=== PATIENT | male | born 1955 | race Caucasian/White ===

== ENCOUNTER 2016-11-10 07:43 | Day surgery (SDC) | payer OTHER ==
[2016-11-06 15:11] VITALS: BMI 42.7
[2016-11-10] MEDS ORDERED: ROPIVACAINE HCL 0.5% 30ML VIAL ONE (08:43)
[2016-11-10] MEDS ORDERED: MIDAZOLAM HCL 2 MG/2 ML SINGLE DOSE VIAL ONE ×5 (08:43→10:09)
[2016-11-10] MEDS ORDERED: DEXAMETHASONE SOD PHOSPHATE/PF 10 MG/ML SDV ONE (08:43)
[2016-11-10] MEDS ORDERED: METOPROLOL TARTRATE 5 MG/5 ML VIAL ONE (10:12)
[2016-11-10 12:52] VITALS: TEMP 98.3
[2016-11-10 12:54] VITALS: BP 121/74; PULSE 81
--- NOTE | 2016-11-13 03:00 | OP ---
DATE OF OPERATION: 11/10/2016 SURGEON: Ministerio Galarza MD EMERGENCY COMMUNICATIONS OPERATOR: REINIER England PREOPERATIVE DIAGNOSIS: 1. Right shoulder rotator cuff tear. 2. Right shoulder of acromioclavicular joint disease. 3. Right shoulder labral tear and anterior and posterior synovitis. 4. Right shoulder biceps tendon long head tear. POSTOPERATIVE DIAGNOSIS: 1. Right shoulder rotator cuff tear. 2. Right shoulder of acromioclavicular joint disease. 3. Right shoulder labral tear and anterior and posterior synovitis. 4. Right shoulder biceps tendon long head tear. PROCEDURE: 1. Right shoulder arthroscopy with rotator cuff repair. 2. Right shoulder arthroscopy with subacromial decompression. 3. Right shoulder arthroscopy with resection of distal clavicle acromioclavicular joint. 4. Right shoulder arthroscopy with debridement of synovectomy major. 5. Right shoulder arthroscopy with biceps tendon release. CPT code 56914, 61193, 15705, 12213, 69315. FINDINGS: 1. 90% tearing of the long head biceps tendon with dislocation. 2. Extensive full-thickness tear of the supraspinatus and infraspinatus tendons with retraction to midpoint glenohumeral joint. 3. Thickness of scar, subacromial space. 4. Anterolateral spurring of acromion. 5. Inferior superior clavicle degenerative joint disease. REPAIR TYPE: Four mattress sutures were placed into the supraspinatus and secured to a bleeding bone bed. They were done in adapted proximal and distal row technique and secured to bleeding bone bed with direct contact. Biceps tendon was released due to extensive tearing debrided. Please note that the distal clavicle resection including undersurface of greater than 1 cm including articular portion. PROCEDURE: Informed consent was obtained. The patient was taken to the operating room where the upper extremity was prepped and draped in a sterile fashion. The shoulder was manipulated for a full range of motion. Posterior incision portal was made and directed to glenohumeral joint. Under direct visualization, an anterior incision and portal was made. Extensive synovitis, as well as chondral injuries throughout the glenohumeral joint were dbrided and removed. Any identified labral injuries, including superior labral tear, anterior and posterior, and anterior labrum torn portions were removed as well. Rotator cuff was visualized and noted to have full-thickness tear. The edges were debrided. Posterior incision portal was redirected to subacromial space where a lateral incision portal was made. Excessive and thickened scar tissue noted throughout the subacromial space, including bursal and scar tissue, were removed. The type 2 acromion was converted into a flattened type 1 using a efren for subacromial decompression. Distal inferior spur at the distal clavicle was also dbrided with the use of accessory portal in the AC joint. The edges of the rotator cuff were identified. Sutures were placed into the rotator cuff and secured using anchors throughout the greater tuberosity. Prior to securing, a bleeding bed was made using a small efren, creating a bleeding surface of the rotator cuff insertion. The shoulder was then drained. A single suture as placed on all portals and a sterile dressing was placed. The patient was transferred to the recovery room without complication. MINISTERIO GALARZA M.D. [id number]
--- NOTE | 2016-11-15 08:54 | PATH ---
Surgical Pathology Report Patient Name: ALESIA BRODERICK [facility]. Rec. #: [id number] /Age/Gender: 1955 (Age: 61) / M Account: [id number] Location: [facility] AMBUL[facility] Taken: 11/10/2016 Received: 11/10/2016 Reported: 11/15/2016 Physicians: Ministerio Ortega M.D. Specimen(s) Received RIGHT SHOULDER SHAVINGS Clinical History Right shoulder rotator cuff tear Final Diagnosis RIGHT SHOULDER, ARTHROSCOPIC SHAVING: PORTIONS OF SYNOVIUM, CARTILAGE, SKELETAL MUSCLE AND BONE CONSISTENT WITH ARTHROSCOPIC SHAVINGS. Electronically Signed Az Morales M.D. Gross Description Received in formalin, labeled "right shoulder shavings," is a 3.0 x 3.0 x 0.3 cm. aggregate of rodriguez-yellow soft tissue fragments. A community relations representative portion is submitted in one cassette. 11/13/201611/13/2016
== END 2016-11-10 12:45 | disposition home or self-care (01) ==
LOC: FASU 07:43
PROVIDERS: ATTEND Orthopaedic Surgery
PROC: 0RNJ4ZZ Release Right Shoulder Joint, Percutaneous Endoscopic Approach (ICD-10-PCS; 2016-11-10)
PROC: 0PB94ZZ Excision of Right Clavicle, Percutaneous Endoscopic Approach (ICD-10-PCS; 2016-11-10)
PROC: 0RBJ4ZZ Excision of Right Shoulder Joint, Percutaneous Endoscopic Approach (ICD-10-PCS; 2016-11-10)
PROC: 0RQJ4ZZ Repair Right Shoulder Joint, Percutaneous Endoscopic Approach (ICD-10-PCS; 2016-11-10)
PROC: 0LB14ZZ Excision of Right Shoulder Tendon, Percutaneous Endoscopic Approach (ICD-10-PCS; principal; 2016-11-10 09:00)
DX: M75.101 Unspecified rotator cuff tear or rupture of right shoulder, not specified as traumatic (principal); M25.811 Other specified joint disorders, right shoulder; S43.431A Superior glenoid labrum lesion of right shoulder, initial encounter; M65.811 Other synovitis and tenosynovitis, right shoulder; S43.491A Other sprain of right shoulder joint, initial encounter; M66.821 Spontaneous rupture of other tendons, right upper arm; X58.XXXA Exposure to other specified factors, initial encounter; Y93.9 Activity, unspecified; Y92.9 Unspecified place or not applicable
CPT/HCPCS: 88304-TC; 94760

== ENCOUNTER 2017-04-13 07:00 | Day surgery (SDC) | payer OTHER ==
[2017-04-09 18:02] VITALS: BMI 43.4
[2017-04-13] MEDS ORDERED: DEXAMETHASONE SOD PHOSPHATE/PF 10 MG/ML SDV ONE (08:26)
[2017-04-13] MEDS ORDERED: MIDAZOLAM HCL 2 MG/2 ML SINGLE DOSE VIAL ONE (08:26)
[2017-04-13] MEDS ORDERED: ROPIVACAINE HCL 0.5% 30ML VIAL ONE (08:27)
[2017-04-13] MEDS ORDERED: ONDANSETRON 4 MG/2 ML VIAL IVPUSH PRN (10:29)
[2017-04-13] MEDS ORDERED: oxyCODONE HCL 5 MG TABLET PO PRN ×2 (10:29)
[2017-04-13] MEDS ORDERED: LACTATED RINGERS SOLUTION 1,000 ML IV SCH (10:30)
[2017-04-13] MEDS ORDERED: DESFLURANE GAS 240 ML BOTTLE IH ONE (10:35)
[2017-04-13] MEDS ORDERED: NEOSTIGMINE METHYLSULFATE 0.5 MG/ML - 10 ML MDV ONE (10:42)
[2017-04-13 11:28] VITALS: TEMP 98.2
[2017-04-13 12:15] VITALS: BP 129/77; PULSE 77
--- NOTE | 2017-04-16 14:54 | PATH ---
Surgical Pathology Report Patient Name: ALESIA BRODERICK Med. Rec. #: [id number] /Age/Gender: 1955 (Age: 61) / M Account: [id number] Location: [facility] AMBULATORY Taken: 04/13/2017 Received: 04/13/2017 Reported: 04/16/2017 Physicians: Ministerio Ortega M.D. Specimen(s) Received RIGHT SHOULDER IMPLANT AND SHAVINGS Clinical History Right shoulder rotator cuff tear Final Diagnosis RIGHT SHOULDER IMPLANT AND SHAVINGS: FRAGMENTS OF SYNOVIUM AND FIBROCARTILAGE WITH MYXOHYALINE DEGENERATION. SMALL FRAGMENTS OF UNREMARKABLE BONE AND SKELETAL MUSCLE. ORTHOPEDIC HARDWARE (GROSS EXAM). Electronically Signed Hussain Bae M.D. Gross Description Received in formalin, labeled "right shoulder implant and shavings," is a 2.5 cm in greatest dimension aggregate of rodriguez-yellow soft tissue fragments. A territory representative portion is submitted in one cassette. Also present are 2 portions of metallic hardware each of which measure 0.8 x 0.3 x 0.3 cm, and have attached possible suture material. This is for gross identification only. [facility]/04/13/2017 [facility]/04/13/2017
--- NOTE | 2017-04-21 14:56 | OP ---
DATE OF OPERATION: 04/13/2017 SURGEON: Ministerio Galarza MD CENTERPUNCHER: REINIER [place] PREOPERATIVE DIAGNOSES: 1. Right shoulder rotator cuff tear. 2. Right shoulder impingement syndrome. 3. Right shoulder synovitis. POSTOPERATIVE DIAGNOSES: 1. Right shoulder rotator cuff tear. 2. Right shoulder impingement syndrome. 3. Right shoulder synovitis. PROCEDURE: 1. Right shoulder arthroscopy with revision repair of supraspinatus rotator cuff tear. 2. Right shoulder arthroscopy with subacromial decompression. 3. Right shoulder arthroscopy with debridement. FINDINGS: 1. Previous rotator cuff repair with retear and extension into infraspinatus. 2. No evidence of long head of biceps. 3. Extensive scar tissue anteriorly and laterally subacromial space. 4. Previous subacromial decompression with minor posterior spurring recurrence. 5. Posterior labral fraying with diffuse grade 2-4 cartilage injury glenoid and humerus. REPAIR TYPE: Loose anchors were removed throughout the area site of previous repair. Sutures were also removed. The remnants of the supraspinatus and infraspinatus tendons were freed from scarring to allow for distraction into the superior portion of the humeral head. Bleeding bone bed was made along the cartilage portion of the superior portion of the humerus to allow for shortening of the rotator cuff and to decrease tension on the repair. Anchors were placed across the greater tuberosity lateral to the bleeding bone bed. Mattress sutures were placed into the supraspinatus and infraspinatus and secured to the bleeding bone bed with tension across the anchors. These were then probed and found to have good stability. PROCEDURE: Informed consent was obtained. The patient was taken to the operating room where the upper extremity was prepped and draped in a sterile fashion. The shoulder was manipulated for a full range of motion. Posterior incision portal was made and directed to glenohumeral joint. Under direct visualization, an anterior incision and portal was made. Extensive synovitis, as well as chondral injuries throughout the glenohumeral joint were dbrided and removed. Any identified labral injuries, including superior labral tear, anterior and posterior, and anterior labrum torn portions were removed as well. Rotator cuff was visualized and noted to have full-thickness tear. The edges were debrided. Posterior incision portal was redirected to subacromial space where a lateral incision portal was made. Excessive and thickened scar tissue noted throughout the subacromial space, including bursal and scar tissue, were removed. The type 2 acromion was converted into a flattened type 1 using a efren for subacromial decompression. Distal inferior spur at the distal clavicle was also dbrided with the use of accessory portal in the AC joint. The edges of the rotator cuff were identified. Sutures were placed into the rotator cuff and secured using anchors throughout the greater tuberosity. Prior to securing, a bleeding bed was made using a small efren, creating a bleeding surface of the rotator cuff insertion. The shoulder was then drained. A single suture as placed on all portals and a sterile dressing was placed. The patient was transferred to the recovery room without complication. MINISTERIO GALARZA M.D. [id number]
== END 2017-04-13 12:30 | disposition home or self-care (01) ==
LOC: FASU 07:00
PROVIDERS: ATTEND Orthopaedic Surgery
PROC: 0RNJ4ZZ Release Right Shoulder Joint, Percutaneous Endoscopic Approach (ICD-10-PCS; 2017-04-13)
PROC: 0RBJ4ZZ Excision of Right Shoulder Joint, Percutaneous Endoscopic Approach (ICD-10-PCS; 2017-04-13)
PROC: 0LB14ZZ Excision of Right Shoulder Tendon, Percutaneous Endoscopic Approach (ICD-10-PCS; principal; 2017-04-13 09:00)
DX: M75.101 Unspecified rotator cuff tear or rupture of right shoulder, not specified as traumatic (principal); M75.41 Impingement syndrome of right shoulder; M65.811 Other synovitis and tenosynovitis, right shoulder
CPT/HCPCS: 88304-TC; 94760

== ENCOUNTER 2019-03-08 17:00 | Inpatient (IN) | payer OTHER ==
--- NOTE | 2019-03-08 17:24 | PDOC ---
History of Present Illness - General Chief Complaint: Pain Stated Complaint: ABDOMINAL PAIN Time Seen by Provider: 03/08/19 17:11 History Source: Patient Exam Limitations: No Limitations - History of Present Illness Initial Comments: 63M pmh HTN presenting with 1 day of constant crampy nonradiating LLQ pain w/ a few days of TRACIE but able to tolerate PO. Denies f/c/n/v/d, dysuria, testicular pain/swelling. Was seen in urgent care on 03/07/19 for LLQ abdominal pain and instructed to proceed to ED for further w/u; r/o diverticulitis. Was discharged with flagyl and levaquin. Last BM today. Took tramadol for pain today. PMH HTN MEDs see chart NKDA Denies tobacco, drugs Endorses social etoh Past History - Past Medical History Allergies/Adverse Reactions: Allergies Allergy/AdvReac Type Severity Reaction Status Date / Time No Known Drug Allergies Allergy Verified 03/08/19 17:16 Home Medications: Ambulatory Orders Cholecalciferol (Vitamin D3) [Vitamin D3] 2,000 unit PO DAILY 11/06/16 Lansoprazole [Prevacid] 30 mg PO DAILY 11/06/16 Multivitamins [Multivit ([facility] Formulary)] 1 tab PO DAILY 11/06/16 Nebivolol HCl [Bystolic] 10 mg PO DAILY 11/06/16 traMADol HCL [Ultram -] 50 mg PO Q4H PRN 11/06/16 Levofloxacin [Levaquin] 750 mg PO DAILY 03/08/19 Valsartan 320 mg PO DAILY 03/08/19 metroNIDAZOLE [Flagyl -] 500 mg PO QID 03/08/19 Anemia: No Asthma: No Cancer: No Cardiac Disorders: No CVA: No COPD: No CHF: No Dementia: No Diabetes: No GI Disorders: Yes (GERD) Disorders: No HTN: Yes Hypercholesterolemia: No Liver Disease: No Seizures: No Thyroid Disease: No - Surgical History Abdominal Surgery: Yes (??Hernia Repair) Appendectomy: No Cardiac Surgery: No Cholecystectomy: No Lung Surgery: No Neurologic Surgery: No Orthopedic Surgery: Yes (Right Knee Arthroscopy,R shoulder arthroscopy) - Suicide/Smoking/Psychosocial Hx Smoking History: Never smoked Hx Alcohol Use: Yes (social) Drug/Substance Use Hx: No Substance Use Type: Alcohol, Prescribed Hx Substance Use Treatment: No Review of Systems - Review of Systems Able to Perform ROS?: Yes Comments:: CONSTITUTIONAL: Denies F / C HEENT: Denies headache, lightheadedness, dizziness, changes in vision / hearing , diplopia, blurry vision. RESP: Denies SOB CARD: Denies chest pain GI: see hpi. Denies N / V / D, bloody stool, inability to tolerate PO : Denies dysuria, hematuria MSK: Denies joint pain Is the patient limited Persian proficient: No *Physical Exam - Physical Exam Comments: GEN: Nontoxic. AAOx3 HEENT: NC/AT, EOMI, PERRLA. No facial asymmetry. Normal voice. Supple neck w/ FROM. CV: S1/S2, RRR, no m/r/g LUNG: CTAB, no wheezes, crackles, rales, rhonchi. GI: (+)TTP of RLQ, SUPRAPUBIC, AND LLQ w/ guarding. Upper quadrants soft. nondistended, +BS, no rebound. No hernias or pulsatile masses palpated. : No scrotal or penile swelling. No testicular TTP, erythema, or swelling. No hernias or testicular masses palpated. EXTREMITIES: No obvious deformities of all extremities. SKIN: warm, dry, normal turgor PSYCH: normal mood and affect NEURO: Moving all extremities well; ambulating well. ED Treatment Course - LABORATORY CBC & Chemistry Diagram: 03/11/19 07:16 03/11/19 07:16 Medical Decision Making - Medical Decision Making 03/08/19 17:37 63M presenting with LLQ pain in setting of TRACIE, was seen in urgent care and instructed to go to ED. Sent home w/ flagyl and levaquin. Exam significant for RLQ, suprapubic, and LLQ TTP. VS wnl. DDX most likely diverticulitis given hx; considering appendicitis, cystitis/UTI. Unlikely ischemic colitis - hx inconsistent; pain not out of proportion. Unlikely AAA or AoD given history and exam but considering given age and HTN. - labs - IV fluids - pain control - CT A/P 03/08/19 20:52 CT A/P demonstrating extensive sigmoid diverticulitis with tiny extraluminal air within the adjacent interstitum (pneumoperitoneum). No abscess. Surgery contacted. Zosyn started. Patient is resistant to the idea of admission; november AMA 03/08/19 21:16 Discussed patient with Surgeon economics instructor Dr. Antunez who stated no surgical intervention needed at this time, needs transfer to [facility], IVF, IV Abx, NPO. 03/08/19 21:33 There are no beds at [facility] at this moment, notified Dr. Antunez regarding this. If patient amenable, will admit to [facility] and transfer when [facility] bed available. 03/08/19 22:10 Discussed Patient with RAKESH Caba; he will speak to Dr. Hilton regarding transfer. Will reach back. Signed out to attending. *DC/Admit/Observation/Transfer Diagnosis at time of Disposition: Diverticulitis - Discharge Dispostion Condition at time of disposition: Guarded Decision to Admit order: Yes - Referrals - Patient Instructions - Post Discharge Activity
[2019-03-08] MEDS ORDERED: SODIUM CHLORIDE 0.9% 500 ML INFUS.BAG IV ONE (17:36)
[2019-03-08] MEDS ORDERED: ACETAMINOPHEN 1000 MG/100 ML VIAL (NON FORMULARY) IVPB ONE (17:36)
--- NOTE | 2019-03-08 17:47 | PDOC ---
Attending Attestation - Resident Resident Name: Gilmar Dixon - ED Attending Attestation I have performed the following: I have examined & evaluated the patient, The case was reviewed & discussed with the resident, I agree w/resident's findings & plan, Exceptions are as noted - HPI HPI: 03/08/19 17:42 63 M with h/o HTN, GERD, presenting to ED with 2 days of abdominal pain. Pt states it started yesterday morning. Pain is localized to LLQ and suprapubic region. Does not radiate. Denies N/V but endorses loss of appetite. No diarrhea/ constipation. Denies F/C. Pt went to urgent care yesterday and was prescribed flagyl and levaquin, which he has been taking. However, the pain has been persistent, so pt presents to ED for further evaluation. Pt denies CP/SOB. Denies dysuria. Denies flank pain. Denies scrotal pain. - Physicial Exam PE: 03/08/19 17:47 "GENERAL: Awake, alert, and fully oriented, in no acute distress. HEAD: No signs of trauma EYES: PERRLA, EOMI, sclera anicteric, conjunctiva clear ENT: Auricles normal inspection, hearing grossly normal, nares patent, oropharynx clear without exudates. Moist mucosa NECK: Nontender, no stepoffs, Normal ROM, supple, no lymphadenopathy, JVD, or masses LUNGS: Breath sounds equal, clear to auscultation bilaterally. No wheezes, and no crackles HEART: Regular rate and rhythm, normal S1 and S2, no murmurs, rubs or gallops ABDOMEN: + LLQ TTP, normoactive bowel sounds. No guarding, no rebound. No masses EXTREMITIES: Normal range of motion, no edema. No clubbing or cyanosis. No cords, erythema, or tenderness NEUROLOGICAL: Cranial nerves II through XII intact. 5/5 strength and sensation in all extremities, Normal speech, normal gait, normal cerebellar function SKIN: Warm, Dry, normal turgor, no rashes or lesions noted. - Medical Decision Making 03/08/19 17:49 63 M with LLQ abdominal pain. Likely colitis vs diverticulitis. - Labs - CTAP - IV tylenol Pt signed out to Dr. Coombs at 7PM, pending labs and CT
[2019-03-08] MEDS ORDERED: ACETAMINOPHEN INJECTION 100 ML IVPB ONE (17:52)
[2019-03-08 18:14] LABS: BASO % 0.5 % (0-2.0); EOS % 1.2 % (0-4.5); HEMATOCRIT 49.8 % (35.4-49); HEMOGLOBIN 16.4 GM/dl (11.7-16.9); LYMPH % 13.3 % (8-40); MCH 30.4 pg (25.7-33.7); MEAN CELL VOLUME 92.1 fl (80-96); MEAN PLT VOLUME 9.1 fl (7.5-11.1); MONO % 6.7 % (3.8-10.2); NEUT % 78.3 % (42.8-82.8); PLATELET COUNT 225 K/MM3 (134-434); RBC 5.41 M/mm3 (4.00-5.60); RDW 13.7 % (11.9-15.9); WHITE BLOOD COUNT 12.2 K/mm3 (4.0-10.8)
[2019-03-08 18:35] LABS: ALBUMIN 3.6 g/dl (3.4-5.0); BILIRUBIN,TOTAL 1.2 mg/dl (0.2-1); CALCIUM 8.4 mg/dl (8.5-10); CREATININE 1.1 mg/dl (0.55-1.3); POTASSIUM 4.1 mmol/L (3.5-5.1); TOT PROT 6.8 g/dl (6.4-8.2)
--- NOTE | 2019-03-08 19:16 | PDOC ---
*Physical Exam - Vital Signs Last Vital Signs Temp Pulse Resp BP Pulse Ox 98.5 F 88 18 112/77 97 03/08/19 17:11 03/08/19 17:11 03/08/19 17:11 03/08/19 17:11 03/08/19 17:11 ED Treatment Course - LABORATORY CBC & Chemistry Diagram: 03/08/19 17:50 03/08/19 17:50 - ADDITIONAL ORDERS Additional order review: Laboratory Results 03/08/19 03/08/19 17:50 17:50 Sodium 133 L Potassium 4.1 Chloride 102 Carbon Dioxide 27 Anion Gap 4 L BUN 15.0 Creatinine 1.1 Est GFR (CKD-EPI)AfAm 83.53 Est GFR (CKD-EPI)NonAf 72.07 Random Glucose 100 Calcium 8.4 L Total Bilirubin 1.2 H AST 23 ALT 20 Alkaline Phosphatase 50 Total Protein 6.8 Albumin 3.6 Lipase 57 L 03/08/19 17:50 RBC 5.41 MCV 92.1 MCHC 33.0 RDW 13.7 MPV 9.1 Neutrophils % 78.3 Lymphocytes % 13.3 Monocytes % 6.7 Eosinophils % 1.2 Basophils % 0.5 - Medications Given in the ED: ED Medications Discontinued Medications Generic Name Dose Route Start Last Admin Trade Name Freq PRN Reason Stop Dose Admin Acetaminophen 1,000 mg 03/08/19 17:36 03/08/19 17:55 Ofirmev Injection - IVPB 03/08/19 17:37 1,000 mg ONCE ONE Administration Sodium Chloride 1,000 ml 03/08/19 17:36 03/08/19 17:50 Normal Saline - IV 03/08/19 17:37 1,000 ml ONCE ONE Administration Progress Note - Progress Note Progress Note: Care of this patient was transferred to ct from Dr. zapata at 1900 hrs. Patient is a 63-year-old male who was started on antibiotics for presumptive diverticulitis. Patient's been on the antibiotics 2 days and now comes into the emergency room for a CAT scan. Patient was told at the time he was started on the antibiotics he should go to the emergency room for a CAT scan but did not go for a couple of days. Patient comes otherwise are improving. Patient has a CAT scan pending if there is no evidence of perforation or abscess patient will be discharged home to continue his antibiotics. *DC/Admit/Observation/Transfer Diagnosis at time of Disposition: Diverticulitis - Discharge Dispostion Condition at time of disposition: Guarded Decision to Admit order: Yes - Referrals Referrals: Mikhail Bear MD [Primary Care Provider] - - Patient Instructions - Post Discharge Activity
[2019-03-08] MEDS ORDERED: PIPERACILLIN/TAZOB 4.5 GM 4.5 GM in DEXTROSE 5%-WATER 100 ML IVPB ONE (20:40)
[2019-03-08] MEDS ORDERED: PIPERACILLIN/TAZOBACTAM 4.5 GM VIAL IVPB ONE (20:41)
[2019-03-08 20:43] LABS: EPITHELIAL CELLS FEW /hpf; URINE MUCUS 2+
[2019-03-08 23:32] VITALS: BMI 44.0
[2019-03-09] MEDS ORDERED: ACETAMINOPHEN 325 MG TABLET (FP) PO PRN (00:16)
[2019-03-09] MEDS ORDERED: traMADol HCL 50 MG TABLET PO PRN (00:21)
[2019-03-09] MEDS ORDERED: SODIUM CHLORIDE 0.45% 1,000 ML IV SCH ×3 (00:30→08:45)
[2019-03-09] MEDS ORDERED: ZOLPIDEM TARTRATE 5 MG TABLET PO PRN (01:22)
[2019-03-09] MEDS ORDERED: DEXTROSE 5%-WATER - 50 ML IVPB ONE ×3 (01:28→18:07)
[2019-03-09] MEDS ORDERED: PIPERACILLIN/TAZOBACTAM 3.375 GM VIAL IVPB ONE ×3 (01:28→18:07)
[2019-03-09] MEDS: PIPERACILLIN/TAZOB 3.375 GM 3.375 GM in DEXTROSE 5%-WATER - 50 ML IVPB SCH ×3 (01:33→18:42)
--- NOTE | 2019-03-09 08:16 | HP ---
Admitting History and Physical - Primary Care Physician PCP: Luci Bear - Admission Chief Complaint: abdominal pain since History of Present Illness: 63 M with h/o HTN, GERD, presenting to ED with abdominal pain since . Pain is localized to LLQ and suprapubic region. Does not radiate. Denies N/V but endorses loss of appetite. + loose BM, non-bloody. Pt went to urgent care on Sunday and was prescribed flagyl and levaquin, which he has been taking. However, the pain has been persistent, so pt presents to ED for further evaluation. Pt denies CP/SOB. Denies dysuria. Denies flank pain. Denies scrotal pain. History Source: Patient Limitations to Obtaining History: No Limitations - Past Medical History Cardiovascular: Yes: HTN Gastrointestinal: Yes: GERD - Past Surgical History Past Surgical History: Yes: Hernia Repair - Smoking History Smoking history: Never smoked - Alcohol/Substance Use Hx Alcohol Use: Yes (social) Home Medications - Allergies Allergies/Adverse Reactions: Allergies Allergy/AdvReac Type Severity Reaction Status Date / Time No Known Drug Allergies Allergy Verified 03/08/19 17:16 - Home Medications Home Medications: Ambulatory Orders Cholecalciferol (Vitamin D3) [Vitamin D3] 2,000 unit PO DAILY 11/06/16 Lansoprazole [Prevacid] 30 mg PO DAILY 11/06/16 Multivitamins [Multivit ([facility] Formulary)] 1 tab PO DAILY 11/06/16 Nebivolol HCl [Bystolic] 10 mg PO DAILY 11/06/16 traMADol HCL [Ultram -] 50 mg PO Q4H PRN 11/06/16 Levofloxacin [Levaquin] 750 mg PO DAILY 03/08/19 Valsartan 320 mg PO DAILY 03/08/19 metroNIDAZOLE [Flagyl -] 500 mg PO QID 03/08/19 Family Disease History - Family Disease History Family History: Denies Review of Systems - Review of Systems Constitutional: reports: No Symptoms Eyes: reports: No Symptoms HENT: reports: No Symptoms Neck: reports: No Symptoms Cardiovascular: reports: No Symptoms Respiratory: reports: No Symptoms Gastrointestinal: reports: Abdominal Pain, Other (loss of appetite) Genitourinary: reports: No Symptoms Breasts: reports: No Symptoms Reported Musculoskeletal: reports: No Symptoms Integumentary: reports: No Symptoms Neurological: reports: No Symptoms Endocrine: reports: No Symptoms Hematology/Lymphatic: reports: No Symptoms Psychiatric: reports: No Symptoms Physical Examination Vital Signs: Vital Signs Temperature 98.5 F 03/09/19 04:16 Pulse Rate 72 03/09/19 04:16 Respiratory Rate 19 03/09/19 04:16 Blood Pressure 110/68 03/09/19 04:16 O2 Sat by Pulse Oximetry (%) 97 03/08/19 23:16 Constitutional: Yes: No Distress, Obese Eyes: Yes: WNL, Conjunctiva Clear, EOM Intact HENT: Yes: WNL, Atraumatic, Normocephalic Neck: Yes: WNL, Supple, Trachea Midline Cardiovascular: Yes: WNL, Regular Rate and Rhythm Respiratory: Yes: WNL, Regular, CTA Bilaterally Gastrointestinal: Yes: Normal Bowel Sounds, Abdomen, Obese, Tenderness (RLQ, SUPRAPUBIC, AND LLQ w/ guarding. No hernias or pulsatile masses palpated.) ...Rectal Exam: Yes: Deferred Renal/: Yes: WNL Breast(s): Yes: WNL Musculoskeletal: Yes: WNL Extremities: Yes: WNL Edema: No Peripheral Pulses WNL: Yes Integumentary: Yes: Tattoos (multiple to upper extremeties and chest) Neurological: Yes: WNL, Alert, Oriented ...Motor Strength: WNL Psychiatric: Yes: WNL, Alert, Oriented Labs: CBC, BMP 03/08/19 17:50 03/08/19 17:50 Imaging - Results Cat Scan: Image Reviewed (CT A/P demonstrating extensive sigmoid diverticulitis with tiny extraluminal air within the adjacent interstitum (pneumoperitoneum). No abscess.) Problem List - Problems (1) Perforated diverticulum Code(s): K57.80 - DVTRCLI OF INTEST, PART UNSP, W PERF AND ABSCESS W/O BLEED (2) HTN (hypertension) Assessment/Plan: normotensive NPO-holding oral anti hypertensives will dose with IV if needed Code(s): I10 - ESSENTIAL (PRIMARY) HYPERTENSION (3) GERD (gastroesophageal reflux disease) Assessment/Plan: IV protonix, will switch to oral when taking PO Code(s): K21.9 - GASTRO-ESOPHAGEAL REFLUX DISEASE WITHOUT ESOPHAGITIS (4) Obesity, morbid, BMI 40.0-49.9 Assessment/Plan: counseled on weight loss Code(s): E66.01 - MORBID (SEVERE) OBESITY DUE TO EXCESS CALORIES (5) Prophylactic measure Assessment/Plan: FEN IVF @ 150cc/hr while NPO monitor electrolytes low fat, low cholesterol diet when taking PO DVT heparin sq ambulatory Dispo admit to [facility] surg bed, possible transfer to [facility] pending surgery eval full code discharge planning Code(s): Z29.9 - ENCOUNTER FOR PROPHYLACTIC MEASURES, UNSPECIFIED (6) Diverticulitis Assessment/Plan: CT A/P demonstrating extensive sigmoid diverticulitis with tiny extraluminal air within the adjacent interstitum (pneumoperitoneum). No abscess. Surgery consultation pending Zosyn started in ED NPO with IVF IV tylenol prn pain Code(s): K57.92 - DVTRCLI OF INTEST, PART UNSP, W/O PERF OR ABSCESS W/O BLEED Visit type - Emergency Visit Emergency Visit: Yes ED Registration Date: 03/08/19 Care time: The patient presented to the Emergency Department on the above date and was hospitalized for further evaluation of their emergent condition. - New Patient This patient is new to me today: Yes Date on this admission: 03/09/19 - Critical Care Critical Care patient: No
[2019-03-09] MEDS: SODIUM CHLORIDE 1,000 ML IV SCH (09:15)
[2019-03-09 09:24] LABS: HEMATOCRIT 45.3 % (35.4-49); HEMOGLOBIN 14.6 GM/dl (11.7-16.9); MCH 29.5 pg (25.7-33.7); MCHC 32.3 g/dl (32.0-35.9); MEAN CELL VOLUME 91.3 fl (80-96); MEAN PLT VOLUME 9.8 fl (7.5-11.1); PLATELET COUNT 204 K/MM3 (134-434); RBC 4.96 M/mm3 (4.00-5.60); RDW 13.3 % (11.9-15.9); WHITE BLOOD COUNT 10.4 K/mm3 (4.0-10.8)
[2019-03-09 09:42] LABS: MAGNESIUM 1.8 mg/dL (1.8-2.4); POTASSIUM 3.9 mmol/L (3.5-5.1)
[2019-03-09] MEDS: PANTOPRAZOLE SODIUM 40 MG VIAL IVPUSH SCH (09:45)
[2019-03-09] MEDS ORDERED: CHOLECALCIFEROL (VIT D3) 1,000 UNIT (25 MCG) TABLET PO SCH (10:00)
[2019-03-09] MEDS ORDERED: PANTOPRAZOLE 40 MG TABLET (FP) PO SCH (10:00)
--- NOTE | 2019-03-09 10:45 | CONSULT ---
- Consultation REQUESTING PROVIDER: Zack SCHAFFER CONSULT REQUEST: We have been asked to surgically evaluate this patient for ( specify). PCP:DAYLIN Branch HISTORY OF PRESENT ILLNESS: TREY who is a 63 y/o male who presented to the [facility] after [place] [facility] [place] abdominal pain; w/u reveals diverticulitis w/microperforation; he had # hours of LLQ abdominal pain yesterday before he ws first evaluated at an [facility]; he has had a colonoscopy in the past and did relate to haveing diverticulosis; he has no other GI/ c/o. PMHx: GERD/HTN PSHx: ortho surgery ; hernia repair Home Medications Medication Instructions Recorded Cholecalciferol (Vitamin D3) 2,000 unit PO DAILY 11/06/16 [Vitamin D3] Lansoprazole [Prevacid] 30 mg PO DAILY 11/06/16 Multivitamins [Multivit ([facility] 1 tab PO DAILY 11/06/16 Formulary)] Nebivolol HCl [Bystolic] 10 mg PO DAILY 11/06/16 traMADol HCL [Ultram -] 50 mg PO Q4H PRN 11/06/16 Levofloxacin [Levaquin] 750 mg PO DAILY 03/08/19 Valsartan 320 mg PO DAILY 03/08/19 metroNIDAZOLE [Flagyl -] 500 mg PO QID 03/08/19 Allergies Allergy/AdvReac Type Severity Reaction Status Date / Time No Known Drug Allergies Allergy Verified 03/08/19 17:16 REVIEW OF SYSTEMS: CONSTITUTIONAL: Absent: fever, chills, diaphoresis, generalized weakness, malaise, loss of appetite, weight change CARDIOVASCULAR: Absent: chest pain, syncope, palpitations, irregular heart rate, lightheadedness , peripheral edema RESPIRATORY: Absent: cough, shortness of breath, dyspnea with exertion, wheezing, stridor, hemoptysis GASTROINTESTINAL: Absent: abdominal pain, abdominal distension, nausea, vomiting, diarrhea, constipation, melena, hematochezia GENITOURINARY: Absent: dysuria, frequency, urgency, hesitancy, hematuria, flank pain, genital pain MUSCULOSKELETAL: Present: myalgia, arthralgia, joint swelling, back pain, neck pain SKIN: Absent: rash, itching, pallor HEMATOLOGIC/IMMUNOLOGIC: Absent: easy bleeding, easy bruising, lymphadenopathy NEUROLOGIC: Absent: headache, focal weakness, paresthesias, dizziness, unsteady gait, seizure, mental status changes, bladder or bowel incontinence PSYCHIATRIC: Absent: anxiety, depression, suicidal or homicidal ideation, hallucinations. PHYSICAL EXAM: GENERAL: Awake, alert, and fully oriented, in no acute distress. HEAD: Normal with no signs of trauma. EYES: sclera anicteric, conjunctiva clear. NECK: Normal ROM, supple without lymphadenopathy, JVD, or masses. ABDOMEN: Soft, tender focally LLQ w/guarding; no rebound, not distended, normoactive bowel sounds,no masses. No organomegaly. No hernias. MUSCULOSKELETAL: Normal ROM at all joints. No bony deformities or tenderness. No CVA tenderness. UPPER EXTREMITIES: 2+ pulses, warm, well-perfused. No cyanosis. Cap refill <2 seconds. No peripheral edema. LOWER EXTREMITIES: 2+ pulses, warm, well-perfused. No calf tenderness. No peripheral edema. NEUROLOGICAL: Normal speech, gait not observed. PSYCH: Cooperative. Good eye contact. Appropriate mood and affect. SKIN: Warm, dry, normal turgor, no rashes or lesions noted. Vital Signs Temperature 98.5 F 03/09/19 04:16 Pulse Rate 72 03/09/19 04:16 Respiratory Rate 19 03/09/19 04:16 Blood Pressure 110/68 03/09/19 04:16 O2 Sat by Pulse Oximetry (%) 97 03/08/19 23:16 Lab Results WBC 10.4 K/mm3 (4.0-10.8) 03/09/19 06:00 RBC 4.96 M/mm3 (4.00-5.60) 03/09/19 06:00 Hgb 14.6 GM/dl (11.7-16.9) 03/09/19 06:00 Hct 45.3 % (35.4-49) 03/09/19 06:00 MCV 91.3 fl (80-96) 03/09/19 06:00 MCHC 32.3 g/dl (32.0-35.9) 03/09/19 06:00 RDW 13.3 % (11.9-15.9) 03/09/19 06:00 Plt Count 204 K/MM3 (134-434) 03/09/19 06:00 Sodium 136 mmol/L (136-145) 03/09/19 06:00 Potassium 3.9 mmol/L (3.5-5.1) 03/09/19 06:00 Chloride 100 mmol/L (98-107) 03/09/19 06:00 Carbon Dioxide 27 mmol/L (21-32) 03/09/19 06:00 Anion Gap 9 MMOL/L (8-16) 03/09/19 06:00 BUN 14.0 mg/dl (7-18) 03/09/19 06:00 Creatinine 1.0 mg/dl (0.55-1.3) 03/09/19 06:00 Random Glucose 78 mg/dl (74-106) 03/09/19 06:00 Calcium 8.0 mg/dl (8.5-10) L 03/09/19 06:00 CT a/p reviewed IMP: diverticulitis w/microperforation PLAN: NPO/IVF/IVABS/trend VS and WBC; will f/u. Mike Antunez MD FACS
[2019-03-09] MEDS: HEPARIN NA (PORCINE) 5,000 UNITS/ML 1ML VIAL SQ SCH ×2 (10:56→21:15)
--- NOTE | 2019-03-09 11:48 | EKG ---
Test Reason : Blood Pressure : / mmHG Vent. Rate : 069 BPM Atrial Rate : 069 BPM P-R Int : 138 ms QRS Dur : 092 ms QT Int : 406 ms P-R-T Axes : 046 009 032 degrees QTc Int : 435 ms NORMAL SINUS RHYTHM NORMAL ECG NO PREVIOUS ECGS AVAILABLE Confirmed by LIANNE SCHAFFER, ISIDRO ([id number]) on 03/09/2019 11:47:58 AM Referred By: MD ROJO Confirmed By:ISIDRO ABDALLA MD
--- NOTE | 2019-03-09 11:54 | CON.ID ---
Consult Consult Specialty:: infectious diseases Referred by:: Leda Reason for Consultation:: diverticulitis - History of Present Illness Chief Complaint: abd pain History of Present Illness: 63 M with h/o HTN, GERD, presenting to ED with abdominal pain since . Pain is localized to LLQ . e. Denies N/V but endorses loss of appetite. + loose BM, non-bloody. Pt went to urgent care on Sunday and was prescribed flagyl and levaquin, which he has been taking. However, the pain has been persistent, so pt came to the hospital. on admission patient was worked up and ct scan showed diverticular perf seen by surgical team - History Source History Provided By: Patient Limitations to Obtaining History: No Limitations - Past Medical History Cardio/Vascular: Yes: HTN Gastrointestinal: Yes: GERD - Past Surgical History Past Surgical History: Yes: Hernia Repair - Alcohol/Substance Use Hx Alcohol Use: Yes (social) - Smoking History Smoking history: Never smoked Home Medications - Allergies Allergies/Adverse Reactions: Allergies Allergy/AdvReac Type Severity Reaction Status Date / Time No Known Drug Allergies Allergy Verified 03/08/19 17:16 - Home Medications Home Medications: Ambulatory Orders Cholecalciferol (Vitamin D3) [Vitamin D3] 2,000 unit PO DAILY 11/06/16 Lansoprazole [Prevacid] 30 mg PO DAILY 11/06/16 Multivitamins [Multivit ([facility] Formulary)] 1 tab PO DAILY 11/06/16 Nebivolol HCl [Bystolic] 10 mg PO DAILY 11/06/16 traMADol HCL [Ultram -] 50 mg PO Q4H PRN 11/06/16 Levofloxacin [Levaquin] 750 mg PO DAILY 03/08/19 Valsartan 320 mg PO DAILY 03/08/19 metroNIDAZOLE [Flagyl -] 500 mg PO QID 03/08/19 Review of Systems - Review of Systems Constitutional: reports: No Symptoms Eyes: reports: No Symptoms HENT: reports: No Symptoms Neck: reports: No Symptoms Cardiovascular: reports: No Symptoms Respiratory: reports: No Symptoms Gastrointestinal: reports: Abdominal Pain (left lower quadrant) Musculoskeletal: reports: No Symptoms Integumentary: reports: No Symptoms Neurological: reports: No Symptoms Endocrine: reports: No Symptoms Hematology/Lymphatic: reports: No Symptoms Psychiatric: reports: No Symptoms Physical Exam Vital Signs: Vital Signs Temperature 98.5 F 03/09/19 04:16 Pulse Rate 72 03/09/19 04:16 Respiratory Rate 19 03/09/19 04:16 Blood Pressure 110/68 03/09/19 04:16 O2 Sat by Pulse Oximetry (%) 97 03/08/19 23:16 Constitutional: Yes: Well Nourished, Calm, Mild Distress, Obese HENT: Yes: Atraumatic, Normocephalic Neck: Yes: Supple, Trachea Midline Cardiovascular: Yes: Regular Rate and Rhythm Respiratory: Yes: Regular, CTA Bilaterally Gastrointestinal: Yes: Hypoactive Bowel Sounds, Tenderness Musculoskeletal: Yes: WNL Extremities: Yes: WNL Neurological: Yes: Alert, Oriented Psychiatric: Yes: Alert, Oriented Labs: CBC, BMP 03/09/19 06:00 03/09/19 06:00 Imaging - Results Chest X-ray: Report Reviewed, Image Reviewed Cat Scan: Report Reviewed, Image Reviewed Assessment/Plan this obese patient coming to the hospital because of persistent abd pain because of diverticulitis who failed outpatient treatment and with microperf now abd pain diverticulitis obesity plan will start on zosyn monitor iv fluids npo rest as per the team
[2019-03-09] MEDS ORDERED: ZOLPIDEM TARTRATE 5 MG TABLET PO ONE (20:14)
[2019-03-10] MEDS ORDERED: PIPERACILLIN/TAZOB 3.375 GM 3.375 GM in DEXTROSE 5%-WATER - 50 ML IVPB SCH (02:00)
[2019-03-10] MEDS ORDERED: PIPERACILLIN/TAZOBACTAM 3.375 GM VIAL IVPB ONE ×3 (02:38→17:00)
[2019-03-10] MEDS ORDERED: DEXTROSE 5%-WATER - 50 ML IVPB ONE ×3 (02:38→17:00)
[2019-03-10] MEDS: PIPERACILLIN/TAZOB 3.375 GM 3.375 GM in DEXTROSE 5%-WATER - 50 ML IVPB SCH ×3 (02:46→17:12)
--- NOTE | 2019-03-10 07:55 | PN ---
Progress Note (short form) - Note Progress Note: 63 yo male admitted proximal sigmoid diverticulitis w/ microperf. No acute events since admit to hospital per RN notes. Patient supine in bed. States he feels that the LLQ pain is resolving. Pain managed well via narcotic and non-narcotic medications. He is OOB and ambulating unassisted. Voiding spontaneosuly. A couple of episodes of diarrhea (non-bloody). Denies n/v/f/c Last Vital Signs Temp Pulse Resp BP Pulse Ox 98.5 F 85 18 113/82 99 03/10/19 05:00 03/10/19 05:00 03/10/19 05:00 03/10/19 05:00 03/10/19 05:00 WBC TREND 03/08/19 03/09/19 03/10/19 17:50 06:00 06:50 WBC 12.2 H 10.4 Pending Gen: nad ABD: morbidly obese habitus. Normoactive bowel sounds. LLQ TTP (mild guarding). No rigidity. LLE: soft. nt. bilat. Problem List - Problems (1) Diverticulitis of sigmoid colon Assessment/Plan: 63 yo male admitted with sigmoid diverticulitis and microperforation as seen on ABD/Pelvis CT. Of note, on same CT a small hiatal hernia as well as small to moderate left inguinal hernia identified. Patient is asymptomatic with regards to the hernias. Cont NPO and may have ice chips Bowel rest IV ABX OOB and ambulate Pain management PRN f/u Labs Nutrition Consult - educate patient what to avoid Repeat A/P CT tomorrow or Sunday Patient informed about his hernias, instructed that these aren't emergencies and can be addressed as out-patient for possible elective repair. Above plan discussed with my attending and agrees. Code(s): K57.32 - DVTRCLI OF LG INT W/O PERFORATION OR ABSCESS W/O BLEEDING (2) GERD (gastroesophageal reflux disease) Code(s): K21.9 - GASTRO-ESOPHAGEAL REFLUX DISEASE WITHOUT ESOPHAGITIS (3) HTN (hypertension) Code(s): I10 - ESSENTIAL (PRIMARY) HYPERTENSION (4) Obesity, morbid, BMI 40.0-49.9 Code(s): E66.01 - MORBID (SEVERE) OBESITY DUE TO EXCESS CALORIES
[2019-03-10 07:59] LABS: BASO % 0.5 % (0-2.0); EOS % 3.7 % (0-4.5); HEMATOCRIT 43.7 % (35.4-49); HEMOGLOBIN 14.5 GM/dl (11.7-16.9); LYMPH % 21.6 % (8-40); MCH 30.1 pg (25.7-33.7); MCHC 33.2 g/dl (32.0-35.9); MEAN CELL VOLUME 90.7 fl (80-96); MEAN PLT VOLUME 9.8 fl (7.5-11.1); MONO % 8.7 % (3.8-10.2); NEUT % 65.5 % (42.8-82.8); PLATELET COUNT 203 K/MM3 (134-434); RBC 4.82 M/mm3 (4.00-5.60); RDW 13.5 % (11.9-15.9); WHITE BLOOD COUNT 8.2 K/mm3 (4.0-10.8)
[2019-03-10 08:02] LABS: ALBUMIN 2.9 g/dl (3.4-5.0); BILIRUBIN,TOTAL 0.8 mg/dl (0.2-1); CALCIUM 8.2 mg/dl (8.5-10); CREATININE 1.1 mg/dl (0.55-1.3); INR 1.27 (0.82-1.09); MAGNESIUM 1.9 mg/dL (1.8-2.4); POTASSIUM 4.2 mmol/L (3.5-5.1); PROTHROMBIN TIME (PATIENT) 14.2 SEC (10.2-13.0); TOT PROT 5.7 g/dl (6.4-8.2)
[2019-03-10] MEDS: ACETAMINOPHEN 1000 MG/100 ML VIAL (NON FORMULARY) IVPB PRN ×2 (08:26→21:32)
[2019-03-10] MEDS: SODIUM CHLORIDE 1,000 ML IV SCH (08:27)
[2019-03-10] MEDS: PANTOPRAZOLE SODIUM 40 MG VIAL IVPUSH SCH (10:20)
[2019-03-10] MEDS: HEPARIN NA (PORCINE) 5,000 UNITS/ML 1ML VIAL SQ SCH ×2 (10:42→21:38)
--- NOTE | 2019-03-10 11:51 | PN ---
Progress Note, Physician History of Present Illness: still with tenderness of the abd improving - Current Medication List Current Medications: Active Medications Acetaminophen (Ofirmev Injection -) 1,000 mg IVPB Q6H PRN PRN Reason: PAIN OR FEVER Last Admin: 03/10/19 08:26 Dose: 1,000 mg Cholecalciferol (Vitamin D3 -) 2,000 unit PO DAILY [facility] Heparin Sodium (Porcine) (Heparin -) 5,000 unit SQ BID ANGELA Last Admin: 03/10/19 10:42 Dose: 5,000 unit Sodium Chloride (Normal Saline -) 1,000 mls @ 150 mls/hr IV ASDIR ANGELA Last Admin: 03/10/19 08:27 Dose: 150 mls/hr Piperacillin Sod/Tazobactam (Sod 3.375 gm/ Dextrose) 50 mls @ 100 mls/hr IVPB Q8H-IV ANGELA; Protocol Last Admin: 03/10/19 09:42 Dose: 100 mls/hr Nebivolol (Bystolic -) 10 mg PO DAILY ANGELA Pantoprazole Sodium (Protonix Iv) 40 mg IVPUSH DAILY ANGELA Last Admin: 03/10/19 10:20 Dose: 40 mg Valsartan (Diovan -) 320 mg PO DAILY [facility] - Objective Vital Signs: Vital Signs Temperature 97.8 F 03/10/19 09:00 Pulse Rate 78 03/10/19 09:00 Respiratory Rate 18 03/10/19 09:00 Blood Pressure 108/74 03/10/19 09:00 O2 Sat by Pulse Oximetry (%) 95 03/10/19 09:00 Constitutional: Yes: Calm, Mild Distress, Obese Cardiovascular: Yes: Regular Rate and Rhythm Respiratory: Yes: Regular, CTA Bilaterally Gastrointestinal: Yes: Soft, Hypoactive Bowel Sounds, Tenderness Musculoskeletal: Yes: WNL Extremities: Yes: WNL Neurological: Yes: Alert, Oriented Psychiatric: Yes: Alert, Oriented Labs: CBC, BMP 03/10/19 06:50 03/10/19 06:50 INR, PTT INR 1.27 (0.82-1.09) H 03/10/19 06:50 Assessment/Plan this obese patient coming to the hospital because of persistent abd pain because of diverticulitis who failed outpatient treatment and with microperf now abd pain diverticulitis obesity plan abx iv fluids rest as per surgery and the team
--- NOTE | 2019-03-10 14:56 | PN ---
Physical Exam: SUBJECTIVE: Patient seen and examined at bedside. Has mild LLQ pain. Several episodes of diarrhea. OBJECTIVE: Vital Signs Period Temp Pulse Resp BP Sys/Delong Pulse Ox Last 24 Hr 97.8 F-98.7 F 72-85 18-20 100-120/67-82 95-99 GENERAL: The patient is awake, alert, and fully oriented, in no acute distress. LUNGS: Breath sounds equal, clear to auscultation bilaterally, no wheezes, no crackles, no accessory muscle use. HEART: Regular rate and rhythm, S1, S2 ABDOMEN: Soft, LLQ and LMQ tenderness, hypoactive bowel sounds no guarding, no rebound tenderness EXTREMITIES: 2+ pulses, warm, well-perfused, no edema. NEUROLOGICAL: Cranial nerves II through XII grossly intact. Normal speech, gait not observed. Laboratory Results - last 24 hr 03/10/19 03/10/19 03/10/19 06:50 06:50 06:50 WBC 8.2 RBC 4.82 Hgb 14.5 Hct 43.7 MCV 90.7 MCH 30.1 MCHC 33.2 RDW 13.5 Plt Count 203 MPV 9.8 Absolute Neuts (auto) 5.4 Neutrophils % 65.5 Lymphocytes % 21.6 D Monocytes % 8.7 Eosinophils % 3.7 D Basophils % 0.5 PT with INR 14.2 H INR 1.27 H Sodium 139 Potassium 4.2 Chloride 104 Carbon Dioxide 28 Anion Gap 7 L BUN 13.0 Creatinine 1.1 Est GFR (CKD-EPI)AfAm 83.53 Est GFR (CKD-EPI)NonAf 72.07 Random Glucose 95 Calcium 8.2 L Magnesium 1.9 Total Bilirubin 0.8 AST 14 L ALT 16 Alkaline Phosphatase 44 L Total Protein 5.7 L Albumin 2.9 L Active Medications Generic Name Dose Route Start Last Admin Trade Name Freq PRN Reason Stop Dose Admin Acetaminophen 1,000 mg 03/09/19 08:50 03/10/19 08:26 Ofirmev Injection - IVPB 1,000 mg Q6H PRN Administration PAIN OR FEVER Cholecalciferol 2,000 unit 03/09/19 10:00 Vitamin D3 - PO DAILY ANGELA Heparin Sodium (Porcine) 5,000 unit 03/09/19 10:00 03/10/19 10:42 Heparin - SQ 5,000 unit BID ANGELA Administration Sodium Chloride 1,000 mls @ 150 mls/hr 03/09/19 09:00 03/10/19 08:27 Normal Saline - IV 150 mls/hr ASDIR ANGELA Administration Piperacillin Sod/Tazobactam 50 mls @ 100 mls/hr 03/09/19 18:00 03/10/19 09:42 Sod 3.375 gm/ Dextrose IVPB 100 mls/hr Q8H-IV ANGELA Administration Protocol Nebivolol 10 mg 03/09/19 10:00 Bystolic - PO DAILY ANGELA Pantoprazole Sodium 40 mg 03/09/19 10:00 03/10/19 10:20 Protonix Iv IVPUSH 40 mg DAILY ANGELA Administration Valsartan 320 mg 03/09/19 10:00 Diovan - PO DAILY ANGELA Imaging 03/08 CTAP: acute diverticulitis proximal sigmoid with significant stranding, a few tiny extraluminal air pockets; no gross abscess ASSESSMENT/PLAN 63 year-old male with a PMH significant for HTN, GERD, TOMI on CPAP. Admitted for acute diverticulitis with microperforation. Acute diverticulitis with microperforation --afebrile, WBC 12.2k on admission --continue Zosyn (day #2) --surgery following --ID following Hypertension --BP stable --continue valsartan, Bystolic GERD --protonix TOMI --uses CPAP at home --found using NC last night was sufficient, does not want to bring CPAP from home; could not tolerate BIPAP mask FEN Fluids: D51/2NS@125mL/hr Electrolytes: replete as indicated Nutrition: NPO DVT prophylaxis: subq heparin Dispo: continues to require inpatient care. Full code. Visit type - Emergency Visit Emergency Visit: Yes ED Registration Date: 03/08/19 Care time: The patient presented to the Emergency Department on the above date and was hospitalized for further evaluation of their emergent condition. - New Patient This patient is new to me today: Yes Date on this admission: 03/10/19 - Critical Care Critical Care patient: No
[2019-03-10] MEDS ORDERED: DEXTROSE 5%-0.45% SALINE 1,000 ML IV SCH (15:45)
[2019-03-10] MEDS ORDERED: ZOLPIDEM TARTRATE 5 MG TABLET PO PRN (18:45)
[2019-03-11] MEDS ORDERED: PIPERACILLIN/TAZOBACTAM 3.375 GM VIAL IVPB ONE ×3 (01:02→18:14)
[2019-03-11] MEDS ORDERED: DEXTROSE 5%-WATER - 50 ML IVPB ONE ×3 (01:02→18:14)
[2019-03-11] MEDS: PIPERACILLIN/TAZOB 3.375 GM 3.375 GM in DEXTROSE 5%-WATER - 50 ML IVPB SCH ×3 (01:06→18:21)
[2019-03-11 08:00] LABS: INR 1.18 (0.82-1.09); PROTHROMBIN TIME (PATIENT) 13.2 SEC (10.2-13.0)
[2019-03-11 08:02] LABS: BASO % 0.5 % (0-2.0); HEMATOCRIT 43.1 % (35.4-49); HEMOGLOBIN 14.5 GM/dl (11.7-16.9); LYMPH % 29.4 % (8-40); MCH 30.7 pg (25.7-33.7); MCHC 33.6 g/dl (32.0-35.9); MEAN CELL VOLUME 91.4 fl (80-96); MEAN PLT VOLUME 9.3 fl (7.5-11.1); MONO % 8.6 % (3.8-10.2); NEUT % 55.5 % (42.8-82.8); PLATELET COUNT 219 K/MM3 (134-434); RBC 4.71 M/mm3 (4.00-5.60); RDW 13.3 % (11.9-15.9); WHITE BLOOD COUNT 6.1 K/mm3 (4.0-10.8)
[2019-03-11 08:12] LABS: BILIRUBIN,TOTAL 0.6 mg/dl (0.2-1); CALCIUM 8.5 mg/dl (8.5-10); CREATININE 1.1 mg/dl (0.55-1.3); MAGNESIUM 2.1 mg/dL (1.8-2.4); POTASSIUM 4.6 mmol/L (3.5-5.1); TOT PROT 5.9 g/dl (6.4-8.2)
--- NOTE | 2019-03-11 09:48 | PN ---
Progress Note (short form) - Note Progress Note: Attending Surgeon Seen in f/u; less c/o pain; mor localized to the LLQ VSS AF abdo-soft; minimal if any LLQ tenderness; no LIH appreciated IMP: acute diverticulitis PLAN: Clear liquid diet; continue IVAB's; repeat CT scan a/p. Mike Antunez MD FACS
[2019-03-11] MEDS: NEBIVOLOL 10 MG TABLET (FP) PO SCH (10:19)
[2019-03-11] MEDS: VALSARTAN 160 MG TABLET (UD) PO SCH (10:20)
[2019-03-11] MEDS: PANTOPRAZOLE SODIUM 40 MG VIAL IVPUSH SCH (10:20)
[2019-03-11] MEDS: HEPARIN NA (PORCINE) 5,000 UNITS/ML 1ML VIAL SQ SCH ×2 (10:21→21:11)
[2019-03-11] MEDS ORDERED: DEXTROSE 5%-0.45% SALINE 1,000 ML IV SCH (10:57)
--- NOTE | 2019-03-11 12:32 | PN ---
Physical Exam: SUBJECTIVE: Patient seen and examined at bedside. OBJECTIVE: Vital Signs Period Temp Pulse Resp BP Sys/Delong Pulse Ox Last 24 Hr 97.6 F-98.8 F 65-110 18-18 116-136/58-85 96-99 GENERAL: The patient is awake, alert, and fully oriented, in no acute distress. LUNGS: Breath sounds equal, clear to auscultation bilaterally, no wheezes, no crackles, no accessory muscle use. HEART: Regular rate and rhythm, S1, S2 ABDOMEN: Soft, mild LLQ and LMQ tenderness, hypoactive bowel sounds no guarding , no rebound tenderness EXTREMITIES: 2+ pulses, warm, well-perfused, no edema. NEUROLOGICAL: Cranial nerves II through XII grossly intact. Normal speech, steady gait observed Laboratory Results - last 24 hr 03/11/19 03/11/19 03/11/19 07:16 07:16 07:16 WBC 6.1 RBC 4.71 Hgb 14.5 Hct 43.1 MCV 91.4 MCH 30.7 MCHC 33.6 RDW 13.3 Plt Count 219 MPV 9.3 Absolute Neuts (auto) 3.4 Neutrophils % 55.5 Lymphocytes % 29.4 D Monocytes % 8.6 Eosinophils % 6.0 H Basophils % 0.5 PT with INR 13.2 H INR 1.18 Sodium 140 Potassium 4.6 Chloride 106 Carbon Dioxide 30 Anion Gap 4 L BUN 9.0 Creatinine 1.1 Est GFR (CKD-EPI)AfAm 83.53 Est GFR (CKD-EPI)NonAf 72.07 Random Glucose 133 H Calcium 8.5 Magnesium 2.1 Total Bilirubin 0.6 AST 18 ALT 16 Alkaline Phosphatase 39 L Total Protein 5.9 L Albumin 3.0 L Active Medications Generic Name Dose Route Start Last Admin Trade Name Freq PRN Reason Stop Dose Admin Acetaminophen 1,000 mg 03/09/19 08:50 03/10/19 21:32 Ofirmev Injection - IVPB 1,000 mg Q6H PRN Administration PAIN OR FEVER Heparin Sodium (Porcine) 5,000 unit 03/09/19 10:00 03/11/19 10:21 Heparin - SQ 5,000 unit BID ANGELA Administration Piperacillin Sod/Tazobactam 50 mls @ 100 mls/hr 03/09/19 18:00 03/11/19 10:20 Sod 3.375 gm/ Dextrose IVPB 100 mls/hr Q8H-IV ANGELA Administration Protocol Dextrose/Sodium Chloride 1,000 mls @ 75 mls/hr 03/11/19 10:57 D5-1/2ns - IV ASDIR ANGELA Nebivolol 10 mg 03/09/19 10:00 03/11/19 10:19 Bystolic - PO 10 mg DAILY ANGELA Administration Pantoprazole Sodium 40 mg 03/09/19 10:00 03/11/19 10:20 Protonix Iv IVPUSH 40 mg DAILY ANGELA Administration Valsartan 320 mg 03/09/19 10:00 03/11/19 10:20 Diovan - PO 320 mg DAILY ANGELA Administration Zolpidem Tartrate 10 mg 03/10/19 18:45 03/10/19 22:30 Ambien - PO 10 mg HS PRN Administration INSOMNIA Microbiology 03/08/19 19:50 Urine - Urine Clean Catch Urine Culture - Final NO GROWTH OBTAINED Imaging 03/08 CTAP: acute diverticulitis proximal sigmoid with significant stranding, a few tiny extraluminal air pockets; no gross abscess Assessment & Plan 63 year-old male with a PMH significant for HTN, GERD, TOMI on CPAP. Admitted for acute diverticulitis with microperforation. Acute diverticulitis with microperforation --afebrile, leukocytosis resolved --continue Zosyn (day #3) --repeat CT done, pending dictation --surgery following --ID following Hypertension --BP stable --continue valsartan, Bystolic GERD --protonix TOMI --uses CPAP at home --using NC at night here, does not tolerate hospital BIPAP mask FEN Fluids: D51/2NS@ 75mL/hr Electrolytes: replete as indicated Nutrition: clears DVT prophylaxis: subq heparin Dispo: continues to require inpatient care. Full code. Visit type - Emergency Visit Emergency Visit: Yes ED Registration Date: 03/08/19 Care time: The patient presented to the Emergency Department on the above date and was hospitalized for further evaluation of their emergent condition. - New Patient This patient is new to me today: No - Critical Care Critical Care patient: No
[2019-03-11] MEDS: ACETAMINOPHEN 1000 MG/100 ML VIAL (NON FORMULARY) IVPB PRN (18:21)
[2019-03-11] MEDS: LORazepam 0.5 MG TABLET PO PRN (23:02)
[2019-03-12] MEDS ORDERED: DEXTROSE 5%-WATER - 50 ML IVPB ONE ×3 (01:52→18:35)
[2019-03-12] MEDS ORDERED: PIPERACILLIN/TAZOBACTAM 3.375 GM VIAL IVPB ONE ×3 (01:52→18:35)
[2019-03-12] MEDS: PIPERACILLIN/TAZOB 3.375 GM 3.375 GM in DEXTROSE 5%-WATER - 50 ML IVPB SCH ×3 (02:16→19:15)
[2019-03-12 07:10] LABS: INR 1.21 (0.82-1.09); PROTHROMBIN TIME (PATIENT) 13.5 SEC (10.2-13.0)
--- NOTE | 2019-03-12 07:46 | PN ---
Progress Note (short form) - Note Progress Note: Pt states that he is feeling better everyday, tolerated the clears and is having bowel movements. Vital Signs Period Temp Pulse Resp BP Sys/Delong Pulse Ox Last 24 Hr 97.8 F-98.8 F 57-110 18-19 103-151/58-93 97-100 GEN: A&0x3, NAD ABD: soft, non-distended, non-tender CBC, BMP 03/11/19 07:16 03/11/19 07:16 CT SCAN: Minimal interval improvement involving the sigmoid colon inflammation with perinephritic inflammation. No collections/abscess. Some free fluid in the pelvis. A/P: 63 yo male with sigmoid diverticulitis, clinically improving with minimal change in repeat CT scan finding. D/w Dr. Antunez and recommend to continue IV abx. Continue clears as tolerated if he continues to improve then may advance his diet tomorrow.
--- NOTE | 2019-03-12 09:14 | PN ---
Physical Exam: SUBJECTIVE: Patient seen and examined oob to chair. No physical complaints. Tolerlating clears. Frustrated at having to remain in hospital. OBJECTIVE: Vital Signs Period Temp Pulse Resp BP Sys/Delong Pulse Ox Last 24 Hr 97.8 F-98.8 F 57-110 18-19 103-151/58-93 97-100 GENERAL: The patient is awake, alert, and fully oriented, in no acute distress. LUNGS: Breath sounds equal, clear to auscultation bilaterally, no wheezes, no crackles, no accessory muscle use. HEART: Regular rate and rhythm, S1, S2 ABDOMEN: Soft, not tender, not distended EXTREMITIES: 2+ pulses, warm, well-perfused, no edema. NEUROLOGICAL: Cranial nerves II through XII grossly intact. Normal speech, steady gait observed Laboratory Results - last 24 hr 03/12/19 06:53 PT with INR 13.5 H INR 1.21 Active Medications Generic Name Dose Route Start Last Admin Trade Name Freq PRN Reason Stop Dose Admin Acetaminophen 1,000 mg 03/09/19 08:50 03/11/19 18:21 Ofirmev Injection - IVPB 1,000 mg Q6H PRN Administration PAIN OR FEVER Heparin Sodium (Porcine) 5,000 unit 03/09/19 10:00 03/11/19 21:11 Heparin - SQ 5,000 unit BID ANGELA Administration Piperacillin Sod/Tazobactam 50 mls @ 100 mls/hr 03/09/19 18:00 03/12/19 02:16 Sod 3.375 gm/ Dextrose IVPB 100 mls/hr Q8H-IV ANGELA Administration Protocol Dextrose/Sodium Chloride 1,000 mls @ 75 mls/hr 03/11/19 10:57 03/11/19 11:00 D5-1/2ns - IV 75 mls/hr ASDIR ANGELA Administration Lorazepam 2 mg 03/11/19 22:23 03/11/19 23:02 Ativan - PO 2 mg HS PRN Administration ANXIETY Nebivolol 10 mg 03/09/19 10:00 03/11/19 10:19 Bystolic - PO 10 mg DAILY ANGELA Administration Pantoprazole Sodium 40 mg 03/09/19 10:00 03/11/19 10:20 Protonix Iv IVPUSH 40 mg DAILY ANGELA Administration Valsartan 320 mg 03/09/19 10:00 03/11/19 10:20 Diovan - PO 320 mg DAILY ANGELA Administration Microbiology 03/08/19 19:50 Urine - Urine Clean Catch Urine Culture - Final NO GROWTH OBTAINED Imaging 03/08 CTAP: acute diverticulitis proximal sigmoid with significant stranding, a few tiny extraluminal air pockets; no gross abscess 03/11 CTAP: minimal improvement; no abscess or drainable collection identified, close follow up to r/o early phlegmon formation Assessment & Plan 63 year-old male with a PMH significant for HTN, GERD, TOMI on CPAP. Admitted for acute diverticulitis with microperforation. Acute diverticulitis with microperforation --remains afebrile, leukocytosis resolved --continue Zosyn (day #4) --repeat CT done, pending dictation --surgery following --ID following Hypertension --BP stable --continue valsartan, Bystolic GERD --protonix TOMI --uses CPAP at home --using NC at night here, does not tolerate hospital BIPAP mask FEN Fluids: PO intake adequate Electrolytes: replete as indicated Nutrition: clears DVT prophylaxis: subq heparin Dispo: continues to require inpatient care. Full code. Visit type - Emergency Visit Emergency Visit: Yes ED Registration Date: 03/08/19 Care time: The patient presented to the Emergency Department on the above date and was hospitalized for further evaluation of their emergent condition. - New Patient This patient is new to me today: No - Critical Care Critical Care patient: No
[2019-03-12] MEDS: NEBIVOLOL 10 MG TABLET (FP) PO SCH (09:59)
[2019-03-12] MEDS: VALSARTAN 160 MG TABLET (UD) PO SCH (10:00)
[2019-03-12] MEDS: HEPARIN NA (PORCINE) 5,000 UNITS/ML 1ML VIAL SQ SCH ×2 (10:00→21:55)
[2019-03-12] MEDS: PANTOPRAZOLE SODIUM 40 MG VIAL IVPUSH SCH (10:02)
--- NOTE | 2019-03-12 19:36 | PN ---
Progress Note, Physician History of Present Illness: stable pain better - Current Medication List Current Medications: Active Medications Acetaminophen (Ofirmev Injection -) 1,000 mg IVPB Q6H PRN PRN Reason: PAIN OR FEVER Last Admin: 03/11/19 18:21 Dose: 1,000 mg Heparin Sodium (Porcine) (Heparin -) 5,000 unit SQ BID ANGELA Last Admin: 03/12/19 10:00 Dose: 5,000 unit Piperacillin Sod/Tazobactam (Sod 3.375 gm/ Dextrose) 50 mls @ 100 mls/hr IVPB Q8H-IV ANGELA; Protocol Last Admin: 03/12/19 19:15 Dose: 100 mls/hr Lorazepam (Ativan -) 2 mg PO HS PRN PRN Reason: ANXIETY Last Admin: 03/11/19 23:02 Dose: 2 mg Nebivolol (Bystolic -) 10 mg PO DAILY ANGELA Last Admin: 03/12/19 09:59 Dose: 10 mg Pantoprazole Sodium (Protonix Iv) 40 mg IVPUSH DAILY [facility] Last Admin: 03/12/19 10:02 Dose: 40 mg Valsartan (Diovan -) 320 mg PO DAILY ANGELA Last Admin: 03/12/19 10:00 Dose: 320 mg - Objective Vital Signs: Vital Signs Temperature 97.9 F 03/12/19 14:00 Pulse Rate 64 03/12/19 14:00 Respiratory Rate 19 03/12/19 14:00 Blood Pressure 118/86 03/12/19 14:00 O2 Sat by Pulse Oximetry (%) 97 03/12/19 14:00 Constitutional: Yes: No Distress, Calm Cardiovascular: Yes: S1, S2 Respiratory: Yes: Regular, CTA Bilaterally Gastrointestinal: Yes: Normal Bowel Sounds, Soft Musculoskeletal: Yes: WNL Extremities: Yes: WNL Neurological: Yes: Alert, Oriented Psychiatric: Yes: Alert, Oriented Labs: CBC, BMP 03/11/19 07:16 03/11/19 07:16 INR, PTT INR 1.21 (0.82-1.09) 03/12/19 06:53 Assessment/Plan this obese patient coming to the hospital because of persistent abd pain because of diverticulitis who failed outpatient treatment and with microperf now abd pain diverticulitis obesity plan abx iv fluids rest as per surgery and the team patient had repeat ct scan will await for the results
--- NOTE | 2019-03-12 19:40 | PN ---
Progress Note, Physician History of Present Illness: stable continues to improve - Current Medication List Current Medications: Active Medications Acetaminophen (Ofirmev Injection -) 1,000 mg IVPB Q6H PRN PRN Reason: PAIN OR FEVER Last Admin: 03/11/19 18:21 Dose: 1,000 mg Heparin Sodium (Porcine) (Heparin -) 5,000 unit SQ BID ANGELA Last Admin: 03/12/19 10:00 Dose: 5,000 unit Piperacillin Sod/Tazobactam (Sod 3.375 gm/ Dextrose) 50 mls @ 100 mls/hr IVPB Q8H-IV ANGELA; Protocol Last Admin: 03/12/19 19:15 Dose: 100 mls/hr Lorazepam (Ativan -) 2 mg PO HS PRN PRN Reason: ANXIETY Last Admin: 03/11/19 23:02 Dose: 2 mg Nebivolol (Bystolic -) 10 mg PO DAILY ANGELA Last Admin: 03/12/19 09:59 Dose: 10 mg Pantoprazole Sodium (Protonix Iv) 40 mg IVPUSH DAILY [facility] Last Admin: 03/12/19 10:02 Dose: 40 mg Valsartan (Diovan -) 320 mg PO DAILY ANGELA Last Admin: 03/12/19 10:00 Dose: 320 mg - Objective Vital Signs: Vital Signs Temperature 97.9 F 03/12/19 14:00 Pulse Rate 64 03/12/19 14:00 Respiratory Rate 19 03/12/19 14:00 Blood Pressure 118/86 03/12/19 14:00 O2 Sat by Pulse Oximetry (%) 97 03/12/19 14:00 Constitutional: Yes: No Distress, Calm Cardiovascular: Yes: S1, S2 Respiratory: Yes: Regular, CTA Bilaterally Gastrointestinal: Yes: Soft, Hypoactive Bowel Sounds Musculoskeletal: Yes: WNL Extremities: Yes: WNL Neurological: Yes: Alert, Oriented Psychiatric: Yes: Alert, Oriented Labs: CBC, BMP 03/11/19 07:16 03/11/19 07:16 INR, PTT INR 1.21 (0.82-1.09) 03/12/19 06:53 Assessment/Plan this obese patient coming to the hospital because of persistent abd pain because of diverticulitis who failed outpatient treatment and with microperf now abd pain diverticulitis obesity plan continue iv abx rest as per the team and surgery ct scan seen and results noted tolerating po liquids
[2019-03-12] MEDS: LORazepam 0.5 MG TABLET PO PRN (23:25)
[2019-03-12] MEDS: ACETAMINOPHEN 1000 MG/100 ML VIAL (NON FORMULARY) IVPB PRN (23:31)
[2019-03-13] MEDS ORDERED: PIPERACILLIN/TAZOBACTAM 3.375 GM VIAL IVPB ONE ×4 (01:24→23:05)
[2019-03-13] MEDS ORDERED: DEXTROSE 5%-WATER - 50 ML IVPB ONE ×4 (01:24→23:05)
[2019-03-13] MEDS: PIPERACILLIN/TAZOB 3.375 GM 3.375 GM in DEXTROSE 5%-WATER - 50 ML IVPB SCH ×3 (02:30→18:21)
--- NOTE | 2019-03-13 08:47 | PN ---
Physical Exam: SUBJECTIVE: Patient seen and examined oob to chair. Tolerating clears. No pain. OBJECTIVE: Vital Signs Period Temp Pulse Resp BP Sys/Delong Pulse Ox Last 24 Hr 97.7 F-98.7 F 60-73 16-19 107-137/72-86 96-100 GENERAL: The patient is awake, alert, and fully oriented, in no acute distress. LUNGS: Breath sounds equal, clear to auscultation bilaterally, no wheezes, no crackles, no accessory muscle use. HEART: Regular rate and rhythm, S1, S2 ABDOMEN: Soft, not tender, not distended EXTREMITIES: 2+ pulses, warm, well-perfused, no edema. NEUROLOGICAL: Cranial nerves II through XII grossly intact. Normal speech, steady gait observed Active Medications Generic Name Dose Route Start Last Admin Trade Name Freq PRN Reason Stop Dose Admin Heparin Sodium (Porcine) 5,000 unit 03/09/19 10:03/12/19 21:55 Heparin - SQ 5,000 unit BID ANGELA Administration Piperacillin Sod/Tazobactam 50 mls @ 100 mls/hr 03/09/19 18:00 03/13/19 02:30 Sod 3.375 gm/ Dextrose IVPB 100 mls/hr Q8H-IV ANGELA Administration Protocol Lorazepam 2 mg 03/11/19 22:23 03/12/19 23:25 Ativan - PO 2 mg HS PRN Administration ANXIETY Nebivolol 10 mg 03/09/19 10:00 03/12/19 09:59 Bystolic - PO 10 mg DAILY ANGELA Administration Pantoprazole Sodium 40 mg 03/09/19 10:03/12/19 10:02 Protonix Iv IVPUSH 40 mg DAILY ANGELA Administration Valsartan 320 mg 03/09/19 10:03/12/19 10:00 Diovan - PO 320 mg DAILY ANGELA Administration Microbiology 03/08/19 19:50 Urine - Urine Clean Catch Urine Culture - Final NO GROWTH OBTAINED Imaging 03/08 CTAP: acute diverticulitis proximal sigmoid with significant stranding, a few tiny extraluminal air pockets; no gross abscess 03/11 CTAP: minimal improvement; no abscess or drainable collection identified, close follow up to r/o early phlegmon formation Assessment & Plan 63 year-old male with a PMH significant for HTN, GERD, TOMI on CPAP. Admitted for acute diverticulitis with microperforation. Acute diverticulitis with microperforation --remains afebrile, leukocytosis resolved, clinically much improved --continue Zosyn (day #5) --plan is to advance diet; if tolerates regular food will discharge tomorrow on PO antibiotics; discussed with surgery and ID Hypertension --BP stable --continue valsartan, Bystolic GERD --protonix TOMI --uses CPAP at home --using NC at night here, does not tolerate hospital BIPAP mask FEN Fluids: PO intake adequate Electrolytes: replete as indicated Nutrition: full liquids, advance as tolerated DVT prophylaxis: subq heparin Dispo: continues to require inpatient care. Full code. Visit type - Emergency Visit Emergency Visit: Yes ED Registration Date: 03/08/19 Care time: The patient presented to the Emergency Department on the above date and was hospitalized for further evaluation of their emergent condition. - New Patient This patient is new to me today: No - Critical Care Critical Care patient: No
--- NOTE | 2019-03-13 08:51 | PN ---
Progress Note (short form) - Note Progress Note: Attending Surgeon Seen in f/u; no c/o; tolerating clear liquids VSS AF abdo-soft and non tender WBC-nl repeat CT reviewed IMP: improved PLAN: Advance diet and continue IVABS and d/c home 03/14/19 on PO antibiotics to complete 10 days total and office f/u. Mike Antunez MD FACS
[2019-03-13] MEDS: PANTOPRAZOLE SODIUM 40 MG VIAL IVPUSH SCH (09:20)
[2019-03-13] MEDS: NEBIVOLOL 10 MG TABLET (FP) PO SCH (09:20)
[2019-03-13] MEDS: VALSARTAN 160 MG TABLET (UD) PO SCH (09:20)
[2019-03-13] MEDS: HEPARIN NA (PORCINE) 5,000 UNITS/ML 1ML VIAL SQ SCH ×2 (09:21→23:07)
[2019-03-13 09:43] LABS: EOS % 7.3 % (0-4.5); HEMATOCRIT 49.4 % (35.4-49); HEMOGLOBIN 16.4 GM/dl (11.7-16.9); LYMPH % 34.9 % (8-40); MCH 30.3 pg (25.7-33.7); MCHC 33.2 g/dl (32.0-35.9); MEAN CELL VOLUME 91.1 fl (80-96); MEAN PLT VOLUME 9.6 fl (7.5-11.1); MONO % 7.5 % (3.8-10.2); NEUT % 49.3 % (42.8-82.8); PLATELET COUNT 273 K/MM3 (134-434); RBC 5.43 M/mm3 (4.00-5.60); RDW 13.3 % (11.9-15.9); WHITE BLOOD COUNT 5.7 K/mm3 (4.0-10.8)
[2019-03-13 09:44] LABS: ALBUMIN 3.6 g/dl (3.4-5.0); BILIRUBIN,TOTAL 0.6 mg/dl (0.2-1); CALCIUM 8.9 mg/dl (8.5-10); CREATININE 1.1 mg/dl (0.55-1.3); MAGNESIUM 1.9 mg/dL (1.8-2.4); POTASSIUM 3.9 mmol/L (3.5-5.1); TOT PROT 6.9 g/dl (6.4-8.2)
[2019-03-13] MEDS: LORazepam 0.5 MG TABLET PO PRN (23:33)
[2019-03-14] MEDS: PIPERACILLIN/TAZOB 3.375 GM 3.375 GM in DEXTROSE 5%-WATER - 50 ML IVPB SCH ×2 (01:25→09:31)
--- NOTE | 2019-03-14 08:20 | PN ---
Progress Note, Physician History of Present Illness: patient stable doing well tolerating liquids - Current Medication List Current Medications: Active Medications Heparin Sodium (Porcine) (Heparin -) 5,000 unit SQ BID [facility] Last Admin: 03/13/19 23:07 Dose: 5,000 unit Piperacillin Sod/Tazobactam (Sod 3.375 gm/ Dextrose) 50 mls @ 100 mls/hr IVPB Q8H-IV ANGELA; Protocol Last Admin: 03/14/19 01:25 Dose: 100 mls/hr Lorazepam (Ativan -) 2 mg PO HS PRN PRN Reason: ANXIETY Last Admin: 03/13/19 23:33 Dose: 2 mg Nebivolol (Bystolic -) 10 mg PO DAILY [facility] Last Admin: 03/13/19 09:20 Dose: 10 mg Pantoprazole Sodium (Protonix Iv) 40 mg IVPUSH DAILY [facility] Last Admin: 03/13/19 09:20 Dose: 40 mg Valsartan (Diovan -) 320 mg PO DAILY [facility] Last Admin: 03/13/19 09:20 Dose: 320 mg - Objective Vital Signs: Vital Signs Temperature 97.8 F 03/14/19 06:00 Pulse Rate 67 03/14/19 06:00 Respiratory Rate 16 03/14/19 06:00 Blood Pressure 103/70 03/14/19 06:00 O2 Sat by Pulse Oximetry (%) 97 03/14/19 07:01 Constitutional: Yes: No Distress, Calm Cardiovascular: Yes: Regular Rate and Rhythm Respiratory: Yes: Regular, CTA Bilaterally Gastrointestinal: Yes: Normal Bowel Sounds, Soft Musculoskeletal: Yes: WNL Extremities: Yes: WNL Neurological: Yes: Alert, Oriented Psychiatric: Yes: Alert, Oriented Labs: CBC, BMP 03/13/19 06:45 03/13/19 06:45 INR, PTT INR 1.21 (0.82-1.09) 03/12/19 06:53 Assessment/Plan this obese patient coming to the hospital because of persistent abd pain because of diverticulitis who failed outpatient treatment and with microperf now abd pain diverticulitis obesity plan continue iv abx rest as per the team and surgery ct scan seen and results noted tolerating po liquids
--- NOTE | 2019-03-14 08:21 | PN ---
Progress Note, Physician History of Present Illness: stable doing well c/o of dry cough - Current Medication List Current Medications: Active Medications Heparin Sodium (Porcine) (Heparin -) 5,000 unit SQ BID ANGELA Last Admin: 03/13/19 23:07 Dose: 5,000 unit Piperacillin Sod/Tazobactam (Sod 3.375 gm/ Dextrose) 50 mls @ 100 mls/hr IVPB Q8H-IV ANGELA; Protocol Last Admin: 03/14/19 01:25 Dose: 100 mls/hr Lorazepam (Ativan -) 2 mg PO HS PRN PRN Reason: ANXIETY Last Admin: 03/13/19 23:33 Dose: 2 mg Nebivolol (Bystolic -) 10 mg PO DAILY ANGELA Last Admin: 03/13/19 09:20 Dose: 10 mg Pantoprazole Sodium (Protonix Iv) 40 mg IVPUSH DAILY [facility] Last Admin: 03/13/19 09:20 Dose: 40 mg Valsartan (Diovan -) 320 mg PO DAILY ANGELA Last Admin: 03/13/19 09:20 Dose: 320 mg - Objective Vital Signs: Vital Signs Temperature 97.8 F 03/14/19 06:00 Pulse Rate 67 03/14/19 06:00 Respiratory Rate 16 03/14/19 06:00 Blood Pressure 103/70 03/14/19 06:00 O2 Sat by Pulse Oximetry (%) 97 03/14/19 07:01 Constitutional: Yes: No Distress, Calm Cardiovascular: Yes: S1, S2 Respiratory: Yes: Regular, CTA Bilaterally Gastrointestinal: Yes: Normal Bowel Sounds, Soft Musculoskeletal: Yes: WNL Extremities: Yes: WNL Neurological: Yes: Alert, Oriented Labs: CBC, BMP 03/13/19 06:45 03/13/19 06:45 INR, PTT INR 1.21 (0.82-1.09) 03/12/19 06:53 Assessment/Plan this obese patient coming to the hospital because of persistent abd pain because of diverticulitis who failed outpatient treatment and with microperf now abd pain diverticulitis obesity plan when patient ready can change to augmentin advised about diet rest as per the team
[2019-03-14] MEDS ORDERED: DEXTROSE 5%-WATER - 50 ML IVPB ONE (09:15)
[2019-03-14] MEDS ORDERED: PIPERACILLIN/TAZOBACTAM 3.375 GM VIAL IVPB ONE (09:15)
[2019-03-14 09:31] VITALS: BP 108/73; PULSE 79; TEMP 97.9
[2019-03-14] MEDS: HEPARIN NA (PORCINE) 5,000 UNITS/ML 1ML VIAL SQ SCH (09:31)
[2019-03-14] MEDS: PANTOPRAZOLE SODIUM 40 MG VIAL IVPUSH SCH (09:31)
[2019-03-14] MEDS: NEBIVOLOL 10 MG TABLET (FP) PO SCH ×2 (09:32→11:18)
[2019-03-14] MEDS: VALSARTAN 160 MG TABLET (UD) PO SCH ×2 (09:32→11:18)
--- NOTE | 2019-03-14 10:54 | DS ---
Physical Exam: SUBJECTIVE: Patient seen and examined. Feeling well, feels ready to go home. OBJECTIVE: Vital Signs Period Temp Pulse Resp BP Sys/Delong Pulse Ox Last 24 Hr 97.7 F-98.4 F 59-79 - 103-135/62-85 95-100 PHYSICAL EXAM GENERAL: The patient is awake, alert, and fully oriented, in no acute distress. HEAD: Normal with no signs of trauma. EYES: PERRL, extraocular movements intact, sclera anicteric, conjunctiva clear. ENT: Ears normal, nares patent, oropharynx clear without exudates, moist mucous membranes. NECK: Trachea midline, full range of motion, supple. LUNGS: Breath sounds equal, clear to auscultation bilaterally, no wheezes, no crackles, no accessory muscle use. HEART: Regular rate and rhythm, S1, S2 without murmur, rub or gallop. ABDOMEN: Soft, nontender, nondistended, normoactive bowel sounds, no guarding, no rebound, no hepatosplenomegaly, no masses. EXTREMITIES: 2+ pulses, warm, well-perfused, no edema. NEUROLOGICAL: Cranial nerves II through XII grossly intact. Normal speech, gait not observed. PSYCH: Normal mood, normal affect. SKIN: Warm, dry, normal turgor, no rashes or lesions noted. LABS CBCD WBC 5.7 K/mm3 (4.0-10.8) 03/13/19 06:45 RBC 5.43 M/mm3 (4.00-5.60) 03/13/19 06:45 Hgb 16.4 GM/dl (11.7-16.9) 03/13/19 06:45 Hct 49.4 % (35.4-49) H 03/13/19 06:45 MCV 91.1 fl (80-96) 03/13/19 06:45 MCHC 33.2 g/dl (32.0-35.9) 03/13/19 06:45 RDW 13.3 % (11.9-15.9) 03/13/19 06:45 Plt Count 273 K/MM3 (134-434) D 03/13/19 06:45 MPV 9.6 fl (7.5-11.1) 03/13/19 06:45 CMP Sodium 140 mmol/L (136-145) 03/13/19 06:45 Potassium 3.9 mmol/L (3.5-5.1) 03/13/19 06:45 Chloride 102 mmol/L (98-107) 03/13/19 06:45 Carbon Dioxide 28 mmol/L (21-32) 03/13/19 06:45 Anion Gap 10 MMOL/L (8-16) 03/13/19 06:45 BUN 6.0 mg/dl (7-18) L 03/13/19 06:45 Creatinine 1.1 mg/dl (0.55-1.3) 03/13/19 06:45 Calcium 8.9 mg/dl (8.5-10) 03/13/19 06:45 Total Bilirubin 0.6 mg/dl (0.2-1) 03/13/19 06:45 AST 29 U/L (15-37) 03/13/19 06:45 ALT 28 U/L (13-61) 03/13/19 06:45 Alkaline Phosphatase 47 U/L (45-117) 03/13/19 06:45 Total Protein 6.9 g/dl (6.4-8.2) 03/13/19 06:45 Albumin 3.6 g/dl (3.4-5.0) 03/13/19 06:45 HOSPITAL COURSE: Date of Admission:03/08/19 Date of Discharge: 03/14/19 Pre hospital course 63 year-old male with a PMH significant for HTN, GERD, TOMI on CPAP. Admitted for acute diverticulitis with microperforation. Hospital course Acute diverticulitis with microperforation --one previous episode of diverticulitis x 20 years ago, treated medically --03/08 CTAP: acute diverticulitis proximal sigmoid with significant stranding , a few tiny extraluminal air pockets; no gross abscess --remained afebrile throughout hospital stay; mild leukocytosis on admission which returned to WNL the next day --treated with Zosyn x 5 days; discharged on another 7 days of augmentin and metronidazole --was seen and evaluated by surgery, no indication for surgery --diet was advanced, tolerating regular food at time of discharge --to follow up with PCP Hypertension --BP remained stable --continued valsartan, Bystolic GERD --protonix TOMI --uses CPAP at home --found using NC at night sufficient, did not want to bring CPAP from home; could not tolerate BIPAP mask Minutes to complete discharge: 35 Discharge Summary Reason For Visit: DIVERTICULITIS Current Active Problems Diverticulitis (Acute) Diverticulitis of sigmoid colon (Acute) GERD (gastroesophageal reflux disease) (Acute) HTN (hypertension) (Acute) Obesity, morbid, BMI 40.0-49.9 (Acute) Perforated diverticulum (Acute) Prophylactic measure (Acute) Condition: Improved - Instructions Diet, Activity, Other Instructions: Two prescriptions have been sent to your pharmacy, augmentin and metronidazole, both are antibiotics. Take these medications as directed and be sure to finish all the medication. As we discussed, you should make an appointment to see Dr. Islas to re-establish your relationship. Try to see him as soon as you finish the antibiotics. Return to the emergency room for any new or worsening symptoms. Referrals: Gilmar Islas MD [Staff Physician] - Disposition: HOME - Home Medications Comprehensive Discharge Medication List: Ambulatory Orders Cholecalciferol (Vitamin D3) [Vitamin D3] 2,000 unit PO DAILY 11/06/16 Lansoprazole [Prevacid] 30 mg PO DAILY 11/06/16 Multivitamins [Multivit ([facility] Formulary)] 1 tab PO DAILY 11/06/16 Nebivolol HCl [Bystolic] 10 mg PO DAILY 11/06/16 traMADol HCL [Ultram -] 50 mg PO Q4H PRN 11/06/16 Levofloxacin [Levaquin] 750 mg PO DAILY 03/08/19 Valsartan 320 mg PO DAILY 03/08/19 metroNIDAZOLE [Flagyl -] 500 mg PO QID 03/08/19 This patient is new to me today: No Emergency Visit: Yes ED Registration Date: 03/08/19 Care time: The patient presented to the Emergency Department on the above date and was hospitalized for further evaluation of their emergent condition. Critical Care patient: No - Discharge Referral Referred to [facility] Med P.C.: No
== END 2019-03-14 12:20 | disposition home or self-care (01) | DRG 392 ==
LOC: FER 17:00 → FM/S 22:22
PROVIDERS: ADMIT Internal Medicine; ATTEND Nurse Practitioner Acute Care
DX: K57.20 Diverticulitis of large intestine with perforation and abscess without bleeding (principal); Z68.41 Body mass index [BMI] 40.0-44.9, adult; E66.01 Morbid (severe) obesity due to excess calories; I10 Essential (primary) hypertension; K21.9 Gastro-esophageal reflux disease without esophagitis; D72.829 Elevated white blood cell count, unspecified; G47.33 Obstructive sleep apnea (adult) (pediatric)
CPT/HCPCS: 36415; 71045-TC-FY; 74177-TC; 80048; 80053; 81003; 81015; 83690; 83735; 85025; 85027; 85610; 87086; 93005; 94660; 99285-25; J0131; J1644; J7030

== ENCOUNTER 2019-05-28 06:19 | Day surgery (SDC) | payer OTHER ==
[2019-05-27 13:39] VITALS: BMI 43.4
--- NOTE | 2019-05-27 15:24 | HP ---
Satellite H - Chief Complaint Chief Complaint: right cts - Past Medical History Allergies/Adverse Reactions: Allergies Allergy/AdvReac Type Severity Reaction Status Date / Time No Known Drug Allergies Allergy Verified 03/08/19 17:16 Cardiovascular: Yes: HTN Gastrointestinal: Yes: GERD - Current Medications Current Medications: Home Medications Medication Instructions Recorded Cholecalciferol (Vitamin D3) 2,000 unit PO DAILY 11/06/16 [Vitamin D3] Lansoprazole [Prevacid] 30 mg PO DAILY 11/06/16 Multivitamins [Multivit ([facility] 1 tab PO DAILY 11/06/16 Formulary)] Nebivolol HCl [Bystolic] 10 mg PO DAILY 11/06/16 traMADol HCL [Ultram -] 50 mg PO Q4H PRN 11/06/16 Valsartan 320 mg PO DAILY 03/08/19 Duloxetine HCl 30 mg PO DAILY 05/27/19 Satellite Physical Exam - Physical Examination General Appearance: Well Nourished, Well Developed, Alert & Oriented x3 ENT: Clear Lung: Normal air movement Extremities: Other (right hand- + tinels, + phalens, emg + cts) Neurological: Intact, Alert, Oriented Satellite Impression/Plan - Impression/Plan Impression: right cts Operative Procedure: right ctr Date to be Performed: 05/27/19
[2019-05-28] MEDS ORDERED: BUPIVACAINE HCL/PF 0.5% (5 MG/ML) 30 ML VIAL IJ ONE ×4 (07:20→08:27)
[2019-05-28] MEDS ORDERED: LIDOCAINE HCL 1%, 10 MG/ML (20ML VIAL) ONE ×2 (07:20→08:17)
[2019-05-28] MEDS ORDERED: PROPOFOL 20 ML ONE (07:24)
[2019-05-28] MEDS ORDERED: MIDAZOLAM HCL 2 MG/2 ML SINGLE DOSE VIAL ONE ×2 (07:24→08:09)
[2019-05-28] MEDS ORDERED: SUCCINYLCHOLINE CHLORIDE 200 MG/10 ML SYRINGE ONE (07:24)
[2019-05-28] MEDS ORDERED: DEXMEDETOMIDINE HCL 200 MCG/2 ML IVPB ONE (07:38)
[2019-05-28] MEDS ORDERED: ceFAZolin SODIUM 1 GM VIAL IVPB ONE (08:10)
[2019-05-28] MEDS ORDERED: ceFAZolin SODIUM 1 GM VIAL ONE (08:13)
[2019-05-28] MEDS ORDERED: LIDOCAINE HCL/PF 2% SDV 5ML VIAL ONE (08:13)
[2019-05-28] MEDS ORDERED: SODIUM CHLORIDE 0.9% P/F 10 ML VIAL IJ ONE (08:13)
[2019-05-28] MEDS ORDERED: KETOROLAC TROMETHAMINE 30 MG/1 ML VIAL ONE (08:13)
[2019-05-28] MEDS ORDERED: LIDOCAINE HCL 1%, 10 MG/ML (20ML VIAL) NR ONE (08:27)
[2019-05-28] MEDS ORDERED: oxyCODONE HCL 5 MG TABLET PO PRN (08:39)
[2019-05-28] MEDS ORDERED: ONDANSETRON 4 MG/2 ML VIAL IVPUSH PRN (08:39)
--- NOTE | 2019-05-28 09:02 | OP ---
Operative Note - Note: Operative Date: 05/28/19 Pre-Operative Diagnosis: right CTS Operation: right CTR, tenosynovectomy Post-Operative Diagnosis: Same as Pre-op Surgeon: Isma Merino Anesthesiologist/PLATE [employer] INST[employer]ER HELPER: Jose Luis Best Anesthesia: Local, MAC Specimens Removed: tenosynovium Estimated Blood Loss (mls): 0 Drains, Volume Out (mls): 0 Blood Volume Replaced (mls): 0 Fluid Volume Replaced (mls): 700 Operative Report Dictated: Yes
[2019-05-28 09:53] VITALS: BP 126/76; PULSE 73; TEMP 97.6
--- NOTE | 2019-05-28 18:20 | SPEC ---
DATE OF OPERATION: 05/28/2019 PREOPERATIVE DIAGNOSIS: Right carpal tunnel syndrome and tenosynovitis. POSTOPERATIVE DIAGNOSIS: Right carpal tunnel syndrome and tenosynovitis. OPERATION: Right carpal tunnel release and tenosynovectomy. SURGEON: Isma Merino M.D. ASSISTANTS: None ANESTHESIA: MAC, local injection with 20 mL of 0.5% Marcaine and 1% Lidocaine mix. ANESTHESIOLOGIST: ADMISSION NURSE DRAINS: None. COMPLICATIONS: None. SPECIMENS: Tenosynovium, right wrist. BLOOD LOSS: None. BLOOD GIVEN: None. FLUID REPLACEMENT: 700 mL of Plasmalyte. TOTAL TOURNIQUET TIME: 22 minutes. INDICATIONS: The patient is a 63-year-old male with a preoperative diagnosis of severe right carpal tunnel syndrome. After understanding the potential risks, complications, alternatives and benefits of surgery versus nonsurgical treatment, the patient elected to undergo this procedure. He understands he may not get complete relief of his symptoms including continuation of the numbness. DESCRIPTION OF PROCEDURE: The patient was brought to the operating room, peripheral IV placed and intravenous sedation was given. One gram of intravenous Ancef was given. MAC anesthesia was induced. A tourniquet was applied to the right upper arm and the right upper extremity was prepped and draped in sterile fashion. The entire case was done under 3.8 loupe magnification. A marking pen was utilized to kaiser out a longitudinal incision in an already existing skin crease. Twenty mL of 0.5% Marcaine mixed with 1% Lidocaine was injected in and around the surgical incision. The right upper extremity was elevated, exsanguinated with an Esmarch bandage and the tourniquet inflated to 250 mmHg. A No. 15 scalpel blade was utilized to cut down through the skin. Subcutaneous hemostasis was achieved with the bipolar cautery. Dissection was done through the superficial palmar fascia. Self-retaining retractors were placed into the wound. Under direct visualization, the transverse carpal ligament was transected with a No. 15 scalpel blade, exposing the median nerve and the contents of the carpal tunnel. The distal and proximal extents of the release were completed with a Littler scissor and checked with irrigation and my small finger. They were seen to be complete. Limited dissection was done on the radial side of the median nerve and more extensive dissection was done on the ulnar side of the median nerve. The patients nerve was seen to be quite compressed by epineurium and therefore a limited epineurotomy was performed. A Ragnell retractor was used to gently retract the median nerve in a radial direction. The patient had a lot of tenosynovitis and therefore a tenosynovectomy was performed off all 9 flexor tendons. This was passed off the field as tenosynovium right wrist. The floor of the carpal tunnel was checked. There were no abnormal masses or ganglion cysts. The area was copiously irrigated and washed out and closure begun. Undyed 4-0 Vicryl was used to close the deep dermal layer. Final skin reapproximation was done with horizontal mattress 4-0 nylon sutures. The area was then washed and dried, covered with Xeroform, 4x4s, fluffs between the fingers, Webril and a 4-inch plaster roll was utilized to make a volar splint, which was then wrapped with Talia and Coban. The tourniquet was taken down after a total tourniquet time of 22 minutes. There were no complications during the case. The patient tolerated the procedure well and was brought to the ambulatory recovery room in stable condition. Mili [id number]
--- NOTE | 2019-06-03 14:16 | PATH ---
Surgical Pathology Report Patient Name: ALESIA BRODERICK Med. Rec. #: [id number] /Age/Gender: 1955 (Age: 63) / M Account: [id number] Location: [facility] SURGICAL Taken: 05/28/2019 Received: 05/28/2019 Reported: 06/03/2019 Physicians: Isma Merino M.D. Specimen(s) Received TENOSYNOVIUM Clinical History Right carpal tunnel Final Diagnosis TENOSYNOVIUM RELEASE: TENOSYNOVIUM. Electronically Signed Pina French M.D. Gross Description Received in formalin labeled "tenosynovium," is a 2.2 x 1.5 x 0.3 cm aggregate of rodriguez-yellow portions of soft tissue, consistent with tenosynovium. The specimen is entirely submitted in one cassette. 05/29/201905/29/2019
== END 2019-05-28 10:00 | disposition home or self-care (01) ==
LOC: JASU-SURG 06:19
PROVIDERS: ATTEND Orthopaedic Surgery
PROC: 01N50ZZ Release Median Nerve, Open Approach (ICD-10-PCS; principal; 2019-05-28 08:00)
DX: G56.01 Carpal tunnel syndrome, right upper limb (principal); M65.831 Other synovitis and tenosynovitis, right forearm; I10 Essential (primary) hypertension; G47.30 Sleep apnea, unspecified
CPT/HCPCS: 88304-TC